=== PATIENT | male | born 1945 | race Caucasian/White ===

== ENCOUNTER 2016-04-18 07:35 | Day surgery (SDC) | payer MEDICARE, OTHER ==
[~2016-04-18] VITALS: Ht 177.8 cm; Wt 90.7 kg
== END 2016-04-18 09:57 | disposition short-term general hospital (02) ==
LOC: SURGOP 07:35
PROC: 0DBK8ZZ Excision of Ascending Colon, Via Natural or Artificial Opening Endoscopic (ICD-10-PCS; principal; 2016-04-18)
PROC: 0DBL8ZZ Excision of Transverse Colon, Via Natural or Artificial Opening Endoscopic (ICD-10-PCS; 2016-04-18)
DX: Z12.11 Encounter for screening for malignant neoplasm of colon (principal); D12.2 Benign neoplasm of ascending colon; D12.3 Benign neoplasm of transverse colon; K21.9 Gastro-esophageal reflux disease without esophagitis; F32.9 Major depressive disorder, single episode, unspecified; F17.210 Nicotine dependence, cigarettes, uncomplicated; Z79.899 Other long term (current) drug therapy; Z90.89 Acquired absence of other organs